=== PATIENT | female | born 1975 ===

== ENCOUNTER 2019-03-30 12:02 | Outpatient (CLI) | payer OTHER ==
[~2019-03-30] VITALS: Ht 175.3 cm; Wt 64.9 kg
[2019-03-30] MEDS ORDERED: FLONASE16 GM NASAL (12:09)
[2019-03-30] MEDS ORDERED: ZYRTEC10 MG PO (12:09)
== END 2019-03-30 13:42 | disposition home or self-care (01) ==
LOC: OFIC 805 12:02
DX: H93.13 Tinnitus, bilateral (principal); J31.0 Chronic rhinitis; H61.23 Impacted cerumen, bilateral